=== PATIENT | female | born 1960 | race Caucasian/White ===

== ENCOUNTER 2017-05-23 14:38 | Inpatient (IN) | payer MEDICAID ==
[~2017-05-23] VITALS: Ht 162.6 cm; Wt 48.8 kg
[2017-05-23] MEDS ORDERED: SODIUM CHLORIDE 0.9% 1,000 ML IV ONE ×2 (14:48)
[2017-05-23] MEDS ORDERED: THIAMINE HCL 100 MG/ML 2ML VIAL IV ONE ×2 (15:00→19:00)
[2017-05-23 15:42] LABS: Eosinophils # (auto) 0.3 uL; Eosinophils % (auto) 3.2 % (0.0-7.0); Nucleated Red Blood Cells % 0.1 %
[2017-05-23 15:43] LABS: Basophils # (auto) 0 uL; Basophils % (auto) 0.5 % (0.0-2.0); Hematocrit 44.8 % (36.0-46.0); Hemoglobin 14.5 g/dL (12.2-16.2); Lymphocytes # (auto) 2.4 uL; Lymphocytes % (auto) 26.6 % (10.0-50.0); Mean Corpuscular Hemoglobin 26.6 pg (28.0-32.0); Mean Corpuscular Hgb Conc. 32.4 g/dL (32.0-36.0); Mean Corpuscular Volume 82.1 fL (80.0-100.0); Monocytes # (auto) 0.7 uL; Monocytes % (auto) 7.7 % (0.0-12.0); Neutrophils # (auto) 5.7 uL; Platelet Count (auto) 265 10^3/uL (140-450); Red Blood Cells 5.46 10^6/uL (4.0-5.20); White Blood Cell 9.2 10^3/uL (4.4-10.8)
[2017-05-23 15:45] LABS: Red Cell Distribution Width 22.5 % (11.8-14.3)
[2017-05-23 15:50] LABS: INR 0.95 (0.9-1.15); Partial Thromboplastin Time 26.3 sec (22.64-33.71); Prothrombin Time 10.3 sec (9.37-12.3)
[2017-05-23 15:55] LABS: Alanine Aminotransferase 48 U/L (13-56); Albumin 4.1 g/dL (3.4-5.0); Anion Gap 15 (5-15); Aspartate Aminotransferase 77 U/L (15-37); BUN/Creatinine Ratio 14.9; Blood Urea Nitrogen 10 mg/dL (7-18); Calcium 9.2 mg/dL (8.5-10.1); Carbon Dioxide 22 mmol/L (21-32); Chloride 101 mmol/L (98-107); GFR African American 117 mL/min; GFR Non-African American 96 mL/min; Glucose 138 mg/dL (74-106); Sodium 138 mmol/L (136-145)
[2017-05-23 15:57] LABS: Alkaline Phosphatase 127 U/L (45-117); Bilirubin, Total 0.2 mg/dL (0.2-1.0); Total Protein 8.4 g/dL (6.4-8.2)
[2017-05-23 15:58] LABS: Acetaminophen < 2.0 ug/mL (10-30); Salicylate 2.8 mg/dL (2.8-20.0)
[2017-05-23 16:05] LABS: Potassium 2.6 mmol/L (3.5-5.1)
[2017-05-23] MEDS ORDERED: POTASSIUM CHL 20MEQ/100ML 100 ML IV ONE (16:15)
[2017-05-23] MEDS ORDERED: POTASSIUM CHL 10% (20 MEQ/15ML) 15ml ORAL SOLN PO ONE (16:15)
[2017-05-23] MEDS ORDERED: LORazepam 0.5 MG TAB PO PRN (19:00)
[2017-05-23] MEDS ORDERED: TEMAZEPAM 15 MG CAP PO PRN (19:00)
[2017-05-23] MEDS ORDERED: ACETAMINOPHEN 500 MG TAB PO PRN (19:00)
[2017-05-23] MEDS ORDERED: MORPHINE SULFATE 10 MG/ML INJ 1ML SDV IV PRN ×2 (19:00)
[2017-05-23] MEDS ORDERED: NITROGLYCERIN 0.4 MG SL TAB SL PRN (19:00)
[2017-05-23] MEDS ORDERED: ONDANSETRON HCL 4 MG/2 ML VIAL IV ONE (19:45)
[2017-05-23] MEDS ORDERED: MORPHINE SULFATE 10 MG/ML INJ 1ML SDV IV ONE (19:45)
[2017-05-23 19:47] LABS: Urine Bacteria NONE SEEN /hpf (None Seen); Urine Blood Negative /uL (Negative); Urine Mucus FEW (None Seen); Urine Specific Gravity 1.021 (1.001-1.035); Urine WBC 1 /hpf (0 - 5)
[2017-05-23 20:04] LABS: Amphetamine Screen, Urine NEGATIVE (NEGATIVE); Barbiturate Scree,Urine NEGATIVE (NEGATIVE); Benzodiazephine Screen, Urine NEGATIVE (NEGATIVE); Cannabinoid Screen, Urine NEGATIVE (NEGATIVE); Cocaine Screen, Urine NEGATIVE (NEGATIVE); Opiate Scree,Urine NEGATIVE (NEGATIVE); Phencyclidine Screen, Urine NEGATIVE (NEGATIVE)
[2017-05-23 21:00] VITALS: BP 128/88
[2017-05-23] MEDS: SOD CHL 0.9%/ KCL 40MEQ 1,000 ML IV SCH (21:13)
[2017-05-23] MEDS ORDERED: MORPHINE SULF INJ 2 MG/ML SYRINGE 1ML ONE (22:33)
[2017-05-23] MEDS: APIXABAN 5 MG TAB PO SCH (22:39)
[2017-05-23 22:44] VITALS: BP 128/88
[2017-05-23] MEDS: chlordiazePOXIDE HCL 5 MG CAP PO SCH (23:58)
[2017-05-24] MEDS ORDERED: MORPHINE SULF INJ 2 MG/ML SYRINGE 1ML ONE ×3 (02:51→07:01)
[2017-05-24] MEDS ORDERED: LACTCAP35 PO (03:14)
[2017-05-24] MEDS ORDERED: ALPR0.254 PO (03:17)
[2017-05-24] MEDS ORDERED: APIX5TAB PO (03:17)
[2017-05-24] MEDS ORDERED: PANC3000 PO (03:19)
[2017-05-24] MEDS: SOD CHL 0.9%/ KCL 40MEQ 1,000 ML IV SCH ×2 (04:27→11:28)
[2017-05-24 05:03] VITALS: BP 129/71
[2017-05-24] MEDS: chlordiazePOXIDE HCL 5 MG CAP PO SCH ×3 (06:40→17:35)
[2017-05-24 06:43] LABS: Basophils # (auto) 0 uL; Eosinophils # (auto) 0.2 uL; Hematocrit 33.8 % (36.0-46.0); Hemoglobin 10.7 g/dL (12.2-16.2); Lymphocytes # (auto) 1.9 uL; Mean Corpuscular Hemoglobin 25.8 pg (28.0-32.0); Neutrophils # (auto) 2.1 uL; Nucleated Red Blood Cells % 0.1 %; Red Blood Cells 4.15 10^6/uL (4.0-5.20); White Blood Cell 4.8 10^3/uL (4.4-10.8)
[2017-05-24 06:45] LABS: Basophils % (auto) 0.6 % (0.0-2.0); Eosinophils % (auto) 4.7 % (0.0-7.0); Mean Corpuscular Hgb Conc. 31.6 g/dL (32.0-36.0); Mean Corpuscular Volume 81.5 fL (80.0-100.0); Monocytes # (auto) 0.4 uL; Monocytes % (auto) 9.5 % (0.0-12.0); Neutrophils % (auto) 44.2 % (37.0-80.0); Platelet Count (auto) 152 10^3/uL (140-450)
[2017-05-24 06:59] LABS: Red Cell Distribution Width 22.2 % (11.8-14.3)
[2017-05-24 07:06] LABS: Albumin 3.2 g/dL (3.4-5.0); BUN/Creatinine Ratio 22.9; Bilirubin, Total 0.4 mg/dL (0.2-1.0); Calcium 8.2 mg/dL (8.5-10.1); Potassium 4.5 mmol/L (3.5-5.1); Total Protein 6.2 g/dL (6.4-8.2)
[2017-05-24] MEDS: PROMETHAZINE HCL 25 MG/ML 1ML IV PRN ×3 (07:06→15:38)
[2017-05-24 08:21] VITALS: BP 128/74
[2017-05-24] MEDS: THIAMINE HCL 100 MG/ML 2ML VIAL IV SCH (09:27)
[2017-05-24] MEDS: APIXABAN 5 MG TAB PO SCH ×2 (09:28→22:36)
[2017-05-24] MEDS: PANTOPRAZOLE 40 MG TAB PO SCH (09:28)
[2017-05-24] MEDS: MORPHINE SULF INJ 2 MG/ML SYRINGE 1ML IV PRN ×3 (11:30→22:33)
[2017-05-24 12:00] VITALS: BP 137/55
[2017-05-24] MEDS: SODIUM CHLORIDE 0.9% 1,000 ML IV SCH (17:00)
[2017-05-24 17:01] VITALS: BP 150/79
[2017-05-24 20:00] VITALS: BP 151/95
[2017-05-24 22:00] VITALS: BP 151/95
[2017-05-25] MEDS: chlordiazePOXIDE HCL 5 MG CAP PO SCH ×4 (00:48→17:57)
[2017-05-25] MEDS: SODIUM CHLORIDE 0.9% 1,000 ML IV SCH ×3 (00:50→14:14)
[2017-05-25] MEDS: MORPHINE SULF INJ 2 MG/ML SYRINGE 1ML IV PRN ×4 (05:37→20:34)
[2017-05-25 05:38] VITALS: BP 160/90
[2017-05-25] MEDS: PROMETHAZINE HCL 25 MG/ML 1ML IV PRN ×4 (05:49→20:34)
[2017-05-25 08:50] VITALS: BP 136/80
[2017-05-25] MEDS: THIAMINE HCL 100 MG/ML 2ML VIAL IV SCH (10:37)
[2017-05-25] MEDS: APIXABAN 5 MG TAB PO SCH ×2 (10:37→21:50)
[2017-05-25] MEDS: PANTOPRAZOLE 40 MG TAB PO SCH (10:37)
[2017-05-25 13:00] VITALS: BP 106/57
[2017-05-25 16:44] VITALS: BP 129/81
[2017-05-25 21:54] VITALS: BP 124/80
[2017-05-26] MEDS: chlordiazePOXIDE HCL 5 MG CAP PO SCH ×2 (00:41→06:35)
[2017-05-26] MEDS: SODIUM CHLORIDE 0.9% 1,000 ML IV SCH ×3 (01:58→15:51)
[2017-05-26] MEDS: MORPHINE SULF INJ 2 MG/ML SYRINGE 1ML IV PRN ×3 (02:16→10:59)
[2017-05-26] MEDS: PROMETHAZINE HCL 25 MG/ML 1ML IV PRN ×4 (02:17→15:45)
[2017-05-26 05:16] LABS: Basophils # (auto) 0 uL; Hemoglobin 11.4 g/dL (12.2-16.2); Lymphocytes # (auto) 2.2 uL; Mean Corpuscular Hemoglobin 26.1 pg (28.0-32.0); Monocytes # (auto) 0.5 uL; White Blood Cell 4.1 10^3/uL (4.4-10.8)
[2017-05-26 05:19] LABS: Eosinophils # (auto) 0.3 uL; Eosinophils % (auto) 6.1 % (0.0-7.0); Hematocrit 35.7 % (36.0-46.0); Lymphocytes % (auto) 53.6 % (10.0-50.0); Mean Corpuscular Hgb Conc. 31.8 g/dL (32.0-36.0); Mean Corpuscular Volume 82.1 fL (80.0-100.0); Monocytes % (auto) 12.2 % (0.0-12.0); Neutrophils # (auto) 1.1 uL; Neutrophils % (auto) 27.1 % (37.0-80.0); Nucleated Red Blood Cells % 0.1 %; Platelet Count (auto) 150 10^3/uL (140-450); Red Blood Cells 4.35 10^6/uL (4.0-5.20)
[2017-05-26 05:24] LABS: Red Cell Distribution Width 22.1 % (11.8-14.3)
[2017-05-26 05:46] VITALS: BP 162/73
[2017-05-26 05:53] LABS: Albumin 3.1 g/dL (3.4-5.0); BUN/Creatinine Ratio 8.5; Bilirubin, Total 0.4 mg/dL (0.2-1.0); Calcium 8.7 mg/dL (8.5-10.1); Potassium 4.9 mmol/L (3.5-5.1)
[2017-05-26 09:00] VITALS: BP 124/65
[2017-05-26] MEDS: THIAMINE HCL 100 MG/ML 2ML VIAL IV SCH (10:38)
[2017-05-26] MEDS: PANTOPRAZOLE 40 MG TAB PO SCH (10:38)
[2017-05-26] MEDS: APIXABAN 5 MG TAB PO SCH ×2 (10:38→21:58)
[2017-05-26 13:00] VITALS: BP 123/80
[2017-05-26] MEDS: HYDROcodone-ACET 5/325MG TAB PO PRN (15:45)
[2017-05-26 16:45] VITALS: BP 120/87
[2017-05-26] MEDS: chlordiazePOXIDE HCL 25 MG CAP PO PRN ×2 (17:27→21:58)
[2017-05-26 22:12] VITALS: BP 139/79
[2017-05-27] MEDS: HYDROcodone-ACET 5/325MG TAB PO PRN (01:01)
[2017-05-27 05:14] VITALS: BP 144/80
[2017-05-27] MEDS: SODIUM CHLORIDE 0.9% 1,000 ML IV SCH ×2 (06:07→08:36)
[2017-05-27] MEDS: APIXABAN 5 MG TAB PO SCH (08:36)
[2017-05-27] MEDS: PANTOPRAZOLE 40 MG TAB PO SCH (08:36)
[2017-05-27] MEDS: chlordiazePOXIDE HCL 25 MG CAP PO PRN (08:36)
[2017-05-27] MEDS: THIAMINE HCL 100 MG/ML 2ML VIAL IV SCH (08:36)
[2017-05-27 08:47] VITALS: BP 146/95
[2017-05-27 10:09] VITALS: BP 140/86
== END 2017-05-27 11:30 | disposition home or self-care (01) | DRG 282 ==
LOC: EDBD 14:38 → ER 14:38 → TELE 14:39 → TELE-WESTW 20:59
PROVIDERS: ADMIT Internal Medicine; ATTEND Nurse Practitioner Acute Care
DX: K85.90 Acute pancreatitis without necrosis or infection, unspecified (principal); E11.65 Type 2 diabetes mellitus with hyperglycemia; K86.1 Other chronic pancreatitis; E44.1 Mild protein-calorie malnutrition; E87.6 Hypokalemia; F17.210 Nicotine dependence, cigarettes, uncomplicated; F41.9 Anxiety disorder, unspecified; K44.9 Diaphragmatic hernia without obstruction or gangrene; K57.30 Diverticulosis of large intestine without perforation or abscess without bleeding; I70.0 Atherosclerosis of aorta; D25.9 Leiomyoma of uterus, unspecified; F10.10 Alcohol abuse, uncomplicated; Z86.711 Personal history of pulmonary embolism; Z68.1 Body mass index [BMI] 19.9 or less, adult; E88.09 Other disorders of plasma-protein metabolism, not elsewhere classified
CPT/HCPCS: 36415; 70450; 71045; 74176; 80053; 80061; 80307; 80329; 81001; 82150; 83690; 84484; 85025; 85610; 85652; 85730; 86141; 93005; 96361; 96374; 96375; 96376; J2405; J3480